=== PATIENT | female | born 1940 | race Caucasian/White ===

== ENCOUNTER 2020-12-25 06:05 | Day surgery (SDC) | payer OTHER, SELFPAY ==
[~2020-12-25] VITALS: Ht 157.5 cm; Wt 58.1 kg
[2020-12-25] MEDS ORDERED: CEFAZOLIN SOD 1 GM in D5W 50 ML IV ONE (07:00)
[2020-12-25] MEDS ORDERED: MIDAZOLAM HCL 5 MG/5 ML VIAL IVP ONE (07:40)
[2020-12-25] MEDS ORDERED: DEXAMETHASONE SOD PHOSPHATE 4 MG/ML VIAL IVP ONE (07:40)
[2020-12-25] MEDS ORDERED: LR 1,000 ML IV.SOLN IV ONE (07:40)
[2020-12-25] MEDS ORDERED: PROPOFOL 200MG/ 20ML VIAL (DIPRIVAN) IV ONE (07:40)
[2020-12-25] MEDS ORDERED: LIDOCAINE 1% 10 MG/ML, 20 ML MDV INJ ONE (07:40)
[2020-12-25] MEDS ORDERED: ONDANSETRON HCL 4 MG/2 ML VIAL IVP ONE (07:40)
[2020-12-25] MEDS ORDERED: PHENYLEPHRINE HCL 10 MG/ML VIAL (NEOSYNEPHRINE) IV ONE (07:40)
[2020-12-25] MEDS ORDERED: SUGAMMADEX SODIUM 200 MG/2 ML VIAL IV ONE (07:40)
[2020-12-25] MEDS ORDERED: DESFLURANE 15 MIN GAS INH ONE (07:40)
[2020-12-25] MEDS ORDERED: HYDROmorphone 1 MG/ML INJ. CARTRIDGE IVP PRN ×3 (08:30→09:00)
[2020-12-25] MEDS ORDERED: METOCLOPRAMIDE HCL 10 MG/2 ML VIAL IVP PRN (08:30)
[2020-12-25] MEDS ORDERED: MEPERIDINE HCL/PF 25 MG/ML DISP.SYRIN IVP PRN (08:30)
[2020-12-25] MEDS ORDERED: ONDANSETRON HCL 4 MG/2 ML VIAL IVP PRN (08:30)
[2020-12-25] MEDS ORDERED: LR 1,000 ML IV SCH (08:30)
[2020-12-25] MEDS ORDERED: HYDROcodone/ACETAMIN 5-325 MG TAB (NORCO/ VICODIN) PO PRN ×2 (09:00)
[2020-12-25] MEDS ORDERED: D5/0.45 NS 1,000 ML IV SCH (09:00)
[2020-12-25 13:08] VITALS: BP_SYST 111
== END 2020-12-25 11:45 | disposition home or self-care (01) ==
LOC: SMU 06:05 → SDS 06:05
PROVIDERS: ATTEND Colon & Rectal Surgery
DX: K80.12 Calculus of gallbladder with acute and chronic cholecystitis without obstruction (principal); K21.9 Gastro-esophageal reflux disease without esophagitis; M81.0 Age-related osteoporosis without current pathological fracture; F03.90 Unspecified dementia, unspecified severity, without behavioral disturbance, psychotic disturbance, mood disturbance, and anxiety; E78.00 Pure hypercholesterolemia, unspecified; Z88.5 Allergy status to narcotic agent; Z88.8 Allergy status to other drugs, medicaments and biological substances; Z79.899 Other long term (current) drug therapy; Z20.822 Contact with and (suspected) exposure to COVID-19
CPT/HCPCS: 47563; 74300; 76000; 88304; C1727; C1758; C9399; J0690; J1100; J2001; J2250; J2370; J2405; J2704; J7060; J7120; Q9967; U0003